=== PATIENT | male | born 1970 | race Caucasian/White ===

== ENCOUNTER 2022-06-28 17:41 | Emergency (ER) | payer MEDICAID ==
[~2022-06-28] VITALS: Ht 180.3 cm; Wt 94.5 kg
[2022-06-28 20:13] LABS: BASOPHILS % (AUTO) 0.2 % (0-1); EOSINOPHILS % (AUTO) 0.2 % (0-6); HEMATOCRIT 45.5 % (42.0-52.0); HEMOGLOBIN 15.3 g/dl (14.0-17.9); LYMPHOCYTES # (AUTO) 1.8 X10'3 (1.1-4.8); MEAN CORPUSCULAR HEMOGLOBIN 29.9 PG (27.0-31.0); MEAN CORPUSCULAR HGB CONC 33.6 g/dL (33.0-36.5); MEAN CORPUSCULAR VOLUME 88.8 FL (78-98); MEAN PLATELET VOLUME 7.6 FL (7.4-10.4); MONOCYTES # (AUTO) 0.6 X10'3 (0-0.9); MONOCYTES % (AUTO) 5.9 % (2-12); NEUTROPHILS # (AUTO) 8.6 X10'3 (1.8-7.7); NEUTROPHILS % (AUTO) 77.7 % (42-75); PLATELET COUNT 239 X10'3 (140-440); RED BLOOD COUNT 5.12 X10'6 (4.70-6.10); WHITE BLOOD COUNT 11.1 X10'3 (4.5-11.0)
[2022-06-28 20:33] LABS: ALANINE AMINOTRANSFERASE 29 U/L (12-78); ALBUMIN 4.6 G/DL (3.4-5.0); ALBUMIN/GLOBULIN RATIO 1.3 (1.1-1.5); ALKALINE PHOSPHATASE 57 IU/L (46-116); ANION GAP 8 (8-16); ASPARTATE AMINO TRANSFERASE 20 U/L (10-37); BILIRUBIN,TOTAL 0.6 MG/DL (0.1-1.0); BLOOD UREA NITROGEN 12 MG/DL (7-18); BUN/CREATININE RATIO 10.7 (5.4-32.0); CALCIUM 9.5 MG/DL (8.5-10.1); CHLORIDE 103 MMOL/L (99-107); CREATININE 1.12 MG/DL (0.60-1.10); GLUCOSE 105 MG/DL (70-104); POTASSIUM 4.3 MMOL/L (3.5-5.1); SODIUM 140 MMOL/L (135-145); TOTAL CARBON DIOXIDE 29.5 MMOL/L (24-32); TOTAL PROTEIN 8.1 G/DL (6.4-8.2); eGFR 69 ML/MIN
[2022-06-28 20:37] LABS: D-DIMER < 0.19 MG/L FEU (0-0.50)
[2022-06-29] MEDS ORDERED: iohexol 350MG/ML 100ml bottle IV ONE (02:35)
--- NOTE | 2022-06-29 06:26 | NUR ---
Received report from Rhonda DOW
[2022-06-29 11:46] VITALS: BP 147/107
== END 2022-06-29 13:40 | disposition home or self-care (01) ==
LOC: ER 17:43
DX: I65.01 Occlusion and stenosis of right vertebral artery (principal); R42 Dizziness and giddiness; F17.200 Nicotine dependence, unspecified, uncomplicated; R20.0 Anesthesia of skin; R53.83 Other fatigue; Z85.9 Personal history of malignant neoplasm, unspecified; Z72.89 Other problems related to lifestyle; Z88.2 Allergy status to sulfonamides; Z88.1 Allergy status to other antibiotic agents
CPT/HCPCS: 36415; 70544; 70547; 70551; 80053; 85025; 85379; 85610; 99284; J3490; 99285; Q9967